=== PATIENT | male | born 1965 | race Caucasian/White ===

== ENCOUNTER 2016-10-16 22:42 | Emergency (ER) | payer MEDICAID ==
[~2016-10-16] VITALS: Ht 175.3 cm; Wt 72.7 kg
[2016-10-16 23:44] LABS: BLOOD UREA NITROGEN 19 mg/dL (7-18)
[2016-10-16 23:45] LABS: ACETAMINOPHEN < 2 mcg/mL (10-30)
[2016-10-17 01:52] LABS: DAU SCREEN DISCLAIMER
[2016-10-17 06:28] VITALS: BP 122/71
== END 2016-10-17 10:20 | disposition home or self-care (01) ==
LOC: ED 23:59
DX: F32.2 Major depressive disorder, single episode, severe without psychotic features (principal); R45.851 Suicidal ideations; F10.10 Alcohol abuse, uncomplicated; Z72.89 Other problems related to lifestyle
CPT/HCPCS: 36415; 80048; 80307; 80329; 82040; 85025; 99284; G0480